=== PATIENT | female | born 1995 | race Two or more races ===

== ENCOUNTER 2024-06-25 23:44 | Inpatient (IN) | payer OTHER ==
[~2024-06-25] VITALS: Ht 152.4 cm; Wt 87.5 kg
[2024-06-25 23:07] VITALS: BP 125/77
[2024-06-25 23:09] VITALS: BP 125/77
[2024-06-25] MEDS ORDERED: AMPICILLIN SODIUM 2,000 MG VIAL IV ONE (23:45)
[2024-06-25] MEDS ORDERED: RINGERS SOLUTION,LACTATED 1,000 ML IV SCH (23:45)
[2024-06-26 00:22] LABS: HEMATOCRIT 36.2 % (36.0-45.00); HEMOGLOBIN 12.2 g/dL (12.0-15.00); MEAN CELL VOLUME 85.6 fL (80.00-100.00); MEAN CORPUSCULAR HEMOGLOBIN 28.8 pg (27.00-32.0); MEAN CORPUSCULAR HGB CONC 33.6 g/dl (32.0-36.0); PLATELET COUNT 237 K/uL (150-450); RED BLOOD COUNT 4.23 M/uL (4.00-6.00); RED CELL DISTRIBUTION WIDTH 13.9 % (11.5-14.5)
[2024-06-26 00:29] LABS: PH,URINE 6.5 (5.0-8.0); URINE APPEARANCE Clear; URINE BILIRRUBIN Negative (NEGATIVE); URINE BLOOD Negative; URINE COLOR Yellow; URINE GLUCOSE Negative (NEGATIVE); URINE KETONE Negative (NEGATIVE); URINE LEUKOCYTE Trace; URINE NITRATE Negative; URINE PROTEIN Trace (NEGATIVE); URINE UROBILINOGEN 0.2 E.U./dl
[2024-06-26 00:32] LABS: URINE BACTERIA 496.9 uL (0.0-1933); URINE EPITHELIAL CELLS 27.7 uL (0.0-38.8); URINE RBC 145.6 uL (0.0-20.8); URINE WBC 25.9 uL (0.0-23.2)
[2024-06-26 00:56] LABS: ALBUMIN 2.6 gm/dL (3.4-5.0); BILIRUBIN TOTAL 0.25 mg/dL (0.3-1.2); CALCIUM 8.3 mg/dL (8.5-10.1); CREATININE SERUM 0.86 mg/dL (0.55-1.02); GFR 77.48; GLOBULINA 3.6 G/DL (2.4-3.5); POTASSIUM 3.78 mEq/L (3.5-5.1); TOTAL PROTEIN 6.2 gm/dL (6.4-8.2)
[2024-06-26 01:06] LABS: INR 0.95; PARTIAL THROMBOPLASTIN TIME 27.9 SECONDS (22.0-34.0); PROTHROMBIN TIME 10.4 SECONDS (9.0-11.5)
[2024-06-26 01:15] LABS: URINE CAST 0.14 uL (0.0-1.40)
[2024-06-26] MEDS ORDERED: AMPICILLIN SODIUM 1,000 MG VIAL IV SCH (04:00)
[2024-06-26 04:14] VITALS: BP 116/75
[2024-06-26] MEDS ORDERED: OXYTOCIN 20 UNITS/500ML RL PIGGYBAG IV ONE (06:08)
[2024-06-26] MEDS ORDERED: OXYTOCIN 500 ML IV SCH (06:30)
[2024-06-26 07:15] VITALS: BP 116/72
[2024-06-26 09:53] VITALS: BP 125/67
[2024-06-26] MEDS ORDERED: MORPHINE SULFATE 4 MG/ML CARTRIDGE IV ONE (10:00)
[2024-06-26] MEDS ORDERED: ERYTHROMYCIN BASE OPHT 1GM EACH TUBE OP ONE (11:52)
[2024-06-26] MEDS ORDERED: OXYTOCIN 10 UNITS/ML VIAL ONE ×2 (11:52→16:08)
[2024-06-26] MEDS ORDERED: CEFAZOLIN SODIUM 1,000 MG VIAL IV SCH (12:15)
[2024-06-26] MEDS ORDERED: MORPHINE SULFATE 4 MG/ML CARTRIDGE IV PRN (13:00)
[2024-06-26] MEDS ORDERED: SIMETHICONE 125 MG CAPSULE PO SCH (13:00)
[2024-06-26] MEDS ORDERED: MORPHINE SULFATE 4 MG/ML VIAL IV ONE (15:15)
[2024-06-26] MEDS ORDERED: RINGERS SOLUTION,LACTATED 1,000 ML IV SCH (15:30)
[2024-06-26] MEDS ORDERED: OXYTOCIN 1,000 ML IV SCH (15:30)
[2024-06-26] MEDS ORDERED: DOCUSATE SODIUM 100MG CAP PO SCH (17:00)
[2024-06-26 17:10] VITALS: BP 106/70
[2024-06-26 18:26] LABS: HEMATOCRIT 37.7 % (36.0-45.00); HEMOGLOBIN 12.5 g/dL (12.0-15.00); MEAN CORPUSCULAR HEMOGLOBIN 28.8 pg (27.00-32.0); MEAN CORPUSCULAR HGB CONC 33.1 g/dl (32.0-36.0); PLATELET COUNT 218 K/uL (150-450); RED BLOOD COUNT 4.33 M/uL (4.00-6.00)
[2024-06-26 23:35] VITALS: BP 100/68
[2024-06-27 04:49] VITALS: BP 99/65
[2024-06-27 08:23] VITALS: BP 110/71
[2024-06-27 08:31] VITALS: BP 107/71
[2024-06-27] MEDS ORDERED: IBUprofen 800 MG TABLET PO PRN (09:00)
[2024-06-27 15:00] VITALS: BP 113/71
[2024-06-27 20:00] VITALS: BP 110/75
[2024-06-28 01:03] VITALS: BP 112/70
[2024-06-28 09:00] VITALS: BP 114/76
[2024-06-28 16:23] VITALS: BP 114/74
[2024-06-29 00:46] VITALS: BP 97/65
[2024-06-29 08:00] VITALS: BP 104/67
[2024-06-29 16:37] VITALS: BP 117/82
== END 2024-06-29 17:06 | disposition home or self-care (01) | DRG 788 ==
LOC: OB/GYN 23:44 → LDR 23:44 → O/R 06-26 13:02 → OB/GYN 06-26 14:47
PROVIDERS: Obstetrics & Gynecology; ADMIT Obstetrics & Gynecology; ATTEND Obstetrics & Gynecology
PROC: 4A1HXCZ Monitoring of Products of Conception, Cardiac Rate, External Approach (ICD-10-PCS; 2024-06-25)
PROC: 10D00Z1 Extraction of Products of Conception, Low, Open Approach (ICD-10-PCS; principal; 2024-06-26 11:00)
DX: O42.02 Full-term premature rupture of membranes, onset of labor within 24 hours of rupture (principal); O62.1 Secondary uterine inertia; O77.0 Labor and delivery complicated by meconium in amniotic fluid; Z3A.38 38 weeks gestation of pregnancy; Z37.0 Single live birth